=== PATIENT | male | born 1935 | race Caucasian/White ===

== ENCOUNTER 2020-10-04 07:11 | Outpatient (CLI) | payer MEDICARE, OTHER ==
[~2020-10-04] VITALS: Ht 180.3 cm; Wt 83.5 kg
[~2020-10-04 07:11] MED LIST: AMLO-186 PO; AMLO-187 PO; ASPI81TA59 PO; ATOR40TA59 PO; CLOP75TA PO; DOCU-109 PO; ISOS30TA68 PO; LISI-130 PO; METF500T16 PO; METO100T5 PO; VIT1CAPS12 PO
[2020-10-04] MEDS ORDERED: THROMBIN TOPICAL 5,000 UNIT VIAL. TP ONE (08:00)
[2020-10-04 08:01] VITALS: BP 165/64
[2020-10-04] MEDS ORDERED: LIDOCAINE WITH 8.4% SOD BICARB 3 ML DISP.SYRIN. ONE (08:17)
[2020-10-04] MEDS ORDERED: ZANTAC PO (08:38)
--- NOTE | 2020-10-04 09:25 | NUR ---
Right Pseudoaneurysm not present per Dr. Lopez and ultrasound confirmation. Patient returned to CV/OBS, IV discontinued without any problems, patient dressed and he and his were escorted to the outpatient parking lot to go home. All questions answered and no concerns noted.
--- NOTE | 2020-10-04 14:08 | RAD ---
Right groin arterial Doppler ultrasound study without comparison for history of pseudoaneurysm status post heart catheter. HISTORY: This dominant presents for treatment of 1.5 cm pseudoaneurysm identified approximately one w red devil prior on outside imaging. He indicates no pain in the groin, and states that his small ecchymosis has been improving. Technique and findings: Real-time grayscale and color Doppler evaluation of the arteries of the right groin is performed. There is moderate ossified atherosclerosis. No pseudoaneurysm is identified. No juxta arterial fluid collection is seen. Common femoral artery is patent. IMPRESSION: 1. Moderate atherosclerosis with no sonographic evidence of pseudoaneurysm or juxta arterial fluid co llection. This is in keeping with clinical history of resolved pain and improving ecchymosis. Consequ ently, treatment was deferred. Electronically signed by: Leroy Lopez MD (10/04/2020 2:05 PM) [id number]
== END 2020-10-04 09:22 | disposition home or self-care (01) ==
LOC: INTRAD 07:11
PROVIDERS: ATTEND Surgery Vascular Surgery
DX: I72.9 Aneurysm of unspecified site (principal); I70.90 Unspecified atherosclerosis; I11.0 Hypertensive heart disease with heart failure; I50.9 Heart failure, unspecified; E78.00 Pure hypercholesterolemia, unspecified; I25.10 Atherosclerotic heart disease of native coronary artery without angina pectoris; M19.90 Unspecified osteoarthritis, unspecified site; E11.9 Type 2 diabetes mellitus without complications; Z87.891 Personal history of nicotine dependence; Z79.82 Long term (current) use of aspirin; Z79.899 Other long term (current) drug therapy; Z98.890 Other specified postprocedural states; Z88.6 Allergy status to analgesic agent
CPT/HCPCS: 93926

== ENCOUNTER 2021-03-19 07:51 | Inpatient (IN) | payer MEDICARE, OTHER ==
[~2021-03-19] VITALS: Ht 177.8 cm; Wt 78.5 kg
[~2021-03-19 07:51] MED LIST changes: +ZANTAC PO
[2021-03-19 08:00] VITALS: BP 175/86
[2021-03-19] MEDS ORDERED: FUROSEMIDE 40 MG/4 ML VIAL. IVP ONE (08:15)
[2021-03-19] MEDS ORDERED: ICOS1CAP PO (08:18)
--- NOTE | 2021-03-19 08:35 | PDOC1 ---
History and Physical Date of Service: DOS: DATE: 03/19/21 TIME: 08:33 Chief Complaint: Chief Complain: Shortness of breath History of Present Illness: HPI: 85-year-old male with past medical history of stage I diastolic CHF with LVEF of 50 to 55% CABG 20 years ago, recent left heart cath in August, diabetes mellitus type 2, hypertension, dyslipidemia, gastric ulcer who comes in due to shortness of breath for the past 1 day. Patient states that he was at home and he was unable to go to sleep because when he lie down flat he would be short of breath. He endorses lower extremity swelling more than usual and shortness of breath during exertion. Recently had a heart cath in August and he was unsure of what was going on. Upon review of the records there was in-stent restenosis of a vein graft from his CABG but intervention for angioplasty was unsuccessful. Patient was continue with GDMT and recommended for follow-up with Dr. Mattson at [facility]. Patient also endorses some chest pressure on the left side of his chest that was similar to when he had his chest pain in the past before. Pain is not reproducible on palpation. Currently denies any fevers, abdominal pain, diarrhea, syncope, nausea vomiting, decrease in urine output. Patient is transferred to [facility] from [facility] on a BiPAP due to hypoxic respiratory failure. Past Medical/Surgical History: PMH/PSH: PAST MEDICAL HISTORY: His past medical history is significant for coronary artery disease, status post CABG about more than 20 years ago. He is known to have hypertension, type 2 diabetes, hyperlipidemia and has a bleeding gastric ulcer. At that time, he became anemic and developed chest pain and that is why he ended up with the coronary artery bypass graft surgery. PAST SURGICAL HISTORY: Significant for coronary artery bypass graft surgery, right carotid artery endarterectomy, bilateral cataract extraction, tonsillectomy, appendectomy, and right total knee arthroplasty. Allergies: Allergies: Coded Allergies: morphine (Verified Allergy, Intermediate, 09/19/20) Family History: Family History: Reviewed : Has one brother older and at age of 87. Father at age of 88 because of CVA and mother early at age of 50 because of end-stage renal disease. Social History: Social History: Quit smoking in 1990. Does not drink alcohol or use any drugs. Current Medications: Current Medications Current Medications Furosemide (Lasix) 40 mg 1X ONCE IVP ; Start 03/19/21 at 08:15; Stop 03/19/21 at 08:19; Status DC Amlodipine Besylate (Norvasc) 5 mg DAILY PO ; Start 03/19/21 at 09:00 Aspirin (Aspirin Chewable) 81 mg DAILY PO ; Start 03/19/21 at 09:00 Atorvastatin Calcium (Lipitor) 80 mg DAILY PO ; Start 03/19/21 at 09:00 Clopidogrel Bisulfate (Plavix) 75 mg DAILY PO ; Start 03/19/21 at 09:00 Docusate Sodium (Colace) 100 mg BID PO ; Start 03/19/21 at 09:00 Isosorbide Mononitrate (Imdur) 30 mg DAILY PO ; Start 03/19/21 at 09:00 Lisinopril (Prinivil) 40 mg DAILY PO ; Start 03/19/21 at 09:00; Status UNV Metformin HCl (Glucophage) 500 mg BIDWMEALS PO ; Start 03/19/21 at 17:00; Status UNV Metoprolol Succinate (Toprol Xl) 100 mg DAILY PO ; Start 03/19/21 at 09:00 Fish Oil (Fish Oil) 1,000 mg BID PO ; Start 03/19/21 at 09:00 Multivitamins/ Minerals (I-Aurelio) 1 tab DAILY PO ; Start 03/19/21 at 09:00 Famotidine (Pepcid) 20 mg BID PO ; Start 03/19/21 at 09:00 Active Scripts Active Clopidogrel (Clopidogrel Bisulfate) 75 Mg Tablet 1 Tab PO DAILY 30 Days Isosorbide Mononitrate Er (Isosorbide Mononitrate) 30 Mg Tab.er.24h 1 Tab PO DAILY 30 Days Amlodipine Besylate 5 Mg Tablet 5 Mg PO DAILY 30 Days Reported Vascepa (Icosapent Ethyl) 1 Gm Capsule 2 Cap PO BID 30 Days [Zantac] 150 Mg PO BID Preservision Areds Softgel (Vit A/Vit C/Vit E/Zinc/Copper) 1 Each Capsule 1 Cap PO BID 30 Days Toprol Xl (Metoprolol Succinate) 100 Mg Tab.er.24h 1 Tab PO DAILY 30 Days Metformin Hcl 500 Mg Tablet 500 Mg PO BIDWMEALS Lisinopril 40 Mg Tablet 1 Tab PO DAILY Colace (Docusate Sodium) 100 Mg Capsule 1 Cap PO BID 30 Days Atorvastatin Calcium 40 Mg Tablet 2 Tab PO DAILY Children's Aspirin (Aspirin) 81 Mg Tab.chew 1 Tab PO DAILY 30 Days ROS: Review of Systems Review of System REVIEW OF SYSTEMS: GENERAL: Denies weakness SKIN: No bruising, hair changes or rashes. EYES: No blurred, double or loss of vision. NOSE AND THROAT: No history of nosebleeds, hoarseness or sore throat. HEART: No history of palpitations, chest pain or shortness of breath on exertion. LUNGS: Denies cough, hemoptysis, wheezing or shortness of breath. GASTROINTESTINAL: Denies changes in appetite, nausea, vomiting, diarrhea or constipation. GENITOURINARY: No history of frequency, urgency, hesitancy or nocturia. NEUROLOGIC: Denies history of numbness, tingling, or tremor. PSYCHIATRIC: No history of panic, anxiety or depression. ENDOCRINE: No history of heat or cold intolerance, polyuria or polydipsia. EXTREMITIES: Denies joint pain, pain on walking or stiffness. Physical Exam: Vital Signs: Vital Signs Date Time Temp Pulse Resp B/P (MAP) Pulse Ox O2 Delivery O2 Flow Rate FiO2 03/19/21 08:10 96 BiPAP/CPAP 03/19/21 08:00 97.7 88 26 175/86 (115) 4.0 97.7 Physcial Exam: General: Well developed, well nourished, no acute distress, well appearing HEENT: Pupils equally round and reactive to light, EOMI, no discharge, normal conjunctiva Neck: Supple, no nuchal rigidity, no JVD, trachea midline, no tenderness Cardiac: RRR, no murmurs, no gallops, no rubs Chest/Lungs: Fine crackles bilaterally in the bases Abdomen: soft, non-distended, no guarding, no peritoneal signs, non-tender Back: No tenderness Extremities: +1 pedal edema, pulses intact, non-tender,capillary refill <3 sec bilateral upper and lower extremities, Neuro: Alert and oriented x 4, no focal deficits, normal speech Labs: Labs: Outside images reviewed showing elevated troponins and elevated BNP. Images: Images PROCEDURE: ECHOCARDIOGRAM 2D SPEC/COLOR <Conclusion> The left ventricular systolic function is normal. The ejection fraction is 50-55%. Transmitral Doppler flow pattern is Grade I-abnormal relaxation pattern. Mild mitral regurgitation. There is no evidence of significant pericardial effusion Left heart cath in August 2020: Conclusion 1. Mildly elevated left-sided filling pressures 2. Severe three-vessel coronary artery disease 3. 4/4 bypass grafts patent with severe in-stent restenosis of a sequential vein graft to the obtuse marginal diagonal vessels. 4. Unsuccessful balloon angioplasty of the saphenous vein graft in-stent restenosis. Assessment/Plan Assessment/Plan Acute hypoxic respiratory failure requiring BiPAP Acute CHF exacerbation Acute chest pressure concerning for non-STEMI History of CABG History of diabetes mellitus type 2 History of hypertension History of gastric ulcer Admit to hospitalist service for further management Cardiology consult Strict I's and O's Lasix IV as needed Monitor urine output Resume home cardioprotective medication Heparin for DVT prophylaxis Pepcid GI prophylaxis ADA diet CODE STATUS full Discussed with RN and SW Disposition inpatient management as above DPOA: , Sepideh Mccullough In addition to my E/M visit, advance care planning done with A total time of 20 minutes was spent from 9:00 to 920 face to face in discussion regarding the patient's goals of care, CODE STATUS. A total of 45 minutes of critical care time was spent in reviewing chart, labs, and images. Discussed with RN and SW. Justifications for Admission Other Justification TARAH GIFFORD MD Mar 19, 2021 08:35
[2021-03-19 11:00] VITALS: BP 129/73
[2021-03-19] MEDS: MULTIVITAMIN I-VITE TABLET. PO SCH (11:09)
[2021-03-19] MEDS: ASPIRIN CHEWABLE 81 MG TABLET. PO SCH (11:10)
[2021-03-19] MEDS: ATORVASTATIN CALCIUM 40 MG TABLET. PO SCH (11:10)
[2021-03-19] MEDS: DOCUSATE SODIUM 100 MG CAPSULE. PO SCH ×2 (11:11→20:54)
[2021-03-19] MEDS: FAMOTIDINE 20 MG TABLET. PO SCH ×2 (11:11→20:53)
[2021-03-19] MEDS: ISOSORBIDE MONONITRATE ER 30 MG TAB.ER.24H PO SCH (11:11)
[2021-03-19] MEDS: CLOPIDOGREL BISULFATE 75 MG TABLET PO SCH (11:11)
[2021-03-19] MEDS: OMEGA-3 FATTY ACIDS/FISH OIL 1,000 MG CAPSULE. PO SCH ×2 (11:11→20:54)
[2021-03-19] MEDS: metFORMIN 500 MG TABLET PO SCH ×2 (11:11→17:30)
[2021-03-19] MEDS: LISINOPRIL 20 MG TABLET PO SCH (11:12)
[2021-03-19] MEDS: METOPROLOL SUCC 24HR ER 100 MG TAB.ER.24H. PO SCH (11:12)
[2021-03-19] MEDS ORDERED: ACETAMINOPHEN 325 MG TABLET. PO PRN (11:45)
[2021-03-19] MEDS ORDERED: SENNOSIDES 8.6 MG TABLET PO PRN (11:45)
[2021-03-19] MEDS ORDERED: DEXTROSE 50% 25 GM / 50ML DISP.SYRIN. IV PRN (11:45)
[2021-03-19] MEDS ORDERED: PROCHLORPERAZINE 10 MG/2 ML VIAL. IV PRN (11:45)
[2021-03-19] MEDS ORDERED: ONDANSETRON PF 4 MG/2 ML VIAL. IVP PRN (11:45)
[2021-03-19] MEDS ORDERED: LORazepam 0.5 MG TABLET PO PRN (11:45)
[2021-03-19] MEDS ORDERED: DOCUSATE SODIUM 100 MG CAPSULE. PO PRN (11:45)
[2021-03-19] MEDS: INSULIN LISPRO 300 UNITS/3 ML VIAL. SQ SCH ×2 (12:00→17:00)
[2021-03-19] MEDS ORDERED: ENOXAPARIN 40 MG/0.4 ML SYRINGE. SQ SCH (12:00)
--- NOTE | 2021-03-19 13:11 | CONS ---
DATE OF CONSULTATION: 03/19/2021 DATE OF CONSULTATION: 03/19/2021 REASON FOR CONSULTATION: Heart failure. CONSULTING PHYSICIAN: Dr. He. HISTORY OF PRESENT ILLNESS: Mr. Mccullough is an 85-year-old male well known to our service with past medical history as noted below, who [facility] with worsening dyspnea. He required initiation of noninvasive ventilation and at this time, an EKG was suggestive of ischemia and therefore STEMI was called, but upon further review, it was felt that it was not a ST elevation WA and he was treated appropriately with medical therapy and he was then transferred to [facility]. Upon arrival to [facility], the patient feels much better and is resting comfortably in bed on 2 liters of nasal cannula. He reports that he began to have some shortness of breath over the last several days and ultimately presented to the hospital as noted. He denies any anginal symptoms. Of note, he was seen recently by his primary survey chief about 3-4 weeks ago and he was appearing to be in a euvolemic state without any significant complaints. PAST MEDICAL HISTORY: 1. Coronary artery disease status post bypass with 4 vessels. 2. Hypertension. 3. Dyslipidemia. 4. Chronic diastolic heart failure. 5. Type 2 diabetes. SOCIAL HISTORY: No alcohol, tobacco or illicit drug use. ALLERGIES: MORPHINE. FAMILY HISTORY: Noncontributory. REVIEW OF SYSTEMS: Negative for 10 out of 14 systems reviewed, unless otherwise mentioned above in HPI.. PHYSICAL EXAMINATION: VITAL SIGNS: Afebrile, 73, 129/73, 95% on 2 liters nasal cannula. GENERAL: He appears to be alert and oriented, in no acute distress. HEAD AND NECK: Grossly unremarkable. NECK: Veins are flat. CARDIAC: Regular rate and rhythm without any murmurs, rubs or gallops. LUNGS: Notable for decreased breath sounds at the bases. ABDOMEN: Soft, nontender, nondistended. EXTREMITIES: Without any clubbing, cyanosis, but did demonstrate 1+ pitting edema. Pulses are diminished at 1+. NEUROLOGIC: No focal deficits. MUSCULOSKELETAL: No trauma. SKIN: No rashes. PSYCHIATRIC: Normal mood and affect. DIAGNOSTIC STUDIES: Initial EKG demonstrates sinus rhythm with a left anterior fascicular block, left ventricular hypertrophy, and intraventricular conduction delay. No acute ischemic changes are noted. Initial troponin is trivially elevated. BNP is moderately elevated. Chest x-ray consistent with pulmonary edema. Echocardiogram from August of 2020 demonstrates ejection fraction of 50-55%. Cardiac catheterization in August 2020 demonstrates 3 out of 4 vessels patent with in-stent restenosis of the saphenous vein graft to the diagonal obtuse marginal. Balloon angioplasty was unsuccessful and at that time, further intervention was deferred due to small caliber vessels. IMPRESSION: 1. Acute on chronic diastolic heart failure, etiology of the worsening heart failure is unclear. It may just be underlying ischemic heart disease. Another possibility is MSK shoulder pain leading to HTN and subsequent dyspnea. 2. Hypertension. 3. Dyslipidemia. 4. Type 2 diabetes. RECOMMENDATIONS: At this present time, we will continue the patient's lisinopril, Imdur, metoprolol, Plavix, and atorvastatin as well as aspirin. Continue home amlodipine. Agree with diuresis. Continue serial enzymes and we will monitor closely. I suspect he was volume overloaded slowly and just had progressive diastolic heart failure and after diuresis, he will return to his baseline, at which point he may then be discharged with followup with his primary survey chief, Dr. Mattson at [facility]. Consult Dr. Fuller for possible steroid injection to shoulder. Thank you for this consultation. We will follow along closely. [place]ALL[place]/CHRISTOPH MARTINEZ: Ben TID: [id number] [facility]
[2021-03-19 15:00] VITALS: BP 121/65
[2021-03-19 20:00] VITALS: BP 126/57
[2021-03-19] MEDS: ZOLPIDEM 5 MG TABLET. PO PRN (22:11)
[2021-03-19 23:06] VITALS: BP 121/61
[2021-03-20] VITALS (7 sets, daily range): BP systolic 118–154; BP diastolic 65–75
[2021-03-20 05:05] LABS: BASO % 0 % (0-3); EOS # 0.1 x10^3/uL (0.0-0.7); EOS % 1 % (0-3); HEMATOCRIT 33.8 % (39.0-53.0); HEMOGLOBIN 11.4 g/dL (13.0-17.5); LYMPH # 0.8 x10^3/uL (1.0-4.8); LYMPH % 9 % (24-48); MEAN CORPUSCULAR HEMOGLOBIN 31 pg (25-35); MEAN CORPUSCULAR HGB CONC 34 g/dL (31-37); MEAN CORPUSCULAR VOLUME 91 fL (79-100); MONO # 0.7 x10^3/uL (0.0-1.1); MONO % 8 % (0-9); NEUT # 7.1 x10^3/uL (1.8-7.7); NEUT % 82 % (31-73); PLATELET COUNT 151 x10^3/uL (140-400); RED BLOOD COUNT 3.73 x10^6/uL (4.30-5.70); RED CELL DISTRIBUTION WIDTH 15.2 % (11.5-14.5); WHITE BLOOD COUNT 8.7 x10^3/uL (4.0-11.0)
[2021-03-20 05:31] LABS: CALCIUM 8.1 mg/dL (8.5-10.1); CREATININE 0.9 mg/dL (0.7-1.3); MAGNESIUM 1.7 mg/dL (1.8-2.4); PHOSPHORUS 4.2 mg/dL (2.6-4.7); POTASSIUM 4.1 mmol/L (3.5-5.1)
[2021-03-20 05:38] LABS: % LYMPHS 6 % (24-48); % MONOS 5 % (0-10); % SEGS 89 % (35-66); PLT ESTIMATE ADEQUATE (ADEQUATE); TOXIC GRANULATION SLIGHT; TOXIC VACUOLATION SLIGHT
--- NOTE | 2021-03-20 06:37 | PDOC ---
[employer] PROGRESS NOTE Date of Service DOS: DATE: 03/20/21 TIME: 06:21 Chief Complaint Chief Complaint Acute hypoxic respiratory failure requiring BiPAP Acute on chronic diastolic CHF exacerbation Acute chest pressure concerning for non-STEMI History of CABG History of diabetes mellitus type 2 History of hypertension History of gastric ulcer Admit to hospitalist service for further management Cardiology consult Strict I's and O's Lasix IV as needed Monitor urine output Resume home cardioprotective medication Heparin for DVT prophylaxis Pepcid GI prophylaxis ADA diet CODE STATUS full Discussed with RN and SW Disposition inpatient management as above DPOA: , Sepideh Mccullough History of Present Illness History of Present Illness 85-year-old male with past medical history of stage I diastolic CHF with LVEF of 50 to 55% CABG 20 years ago, recent left heart cath in August, diabetes mellitus type 2, hypertension, dyslipidemia, gastric ulcer who comes in due to shortness of breath for the past 1 day. Patient states that he was at home and he was unable to go to sleep because when he lie down flat he would be short of breath. He endorses lower extremity swelling more than usual and shortness of breath during exertion. Recently had a heart cath in August and he was unsure of what was going on. Upon review of the records there was in-stent restenosis of a vein graft from his CABG but intervention for angioplasty was unsuccessful. Patient was continue with GDMT and recommended for follow-up with Dr. Mattson at [facility]. Patient also endorses some chest pressure on the left side of his chest that was similar to when he had his chest pain in the past before. Pain is not reproducible on palpation. Currently denies any fevers, abdominal pain, diarrhea, syncope, nausea vomiting, decrease in urine output. Patient is transferred to [facility] from [facility] on a BiPAP due to hypoxic respiratory failure. 03/20: Patient is afebrile, currently breathing on room air. He denies any chest pain or sensation of shortness of breath. -1750 mL fluid off overnight; continue diuresis with daily Lasix. He states he has been noticing some swelling in his legs for some time, but Dr. Mattson has been treating with compression stockings without complete relief. I believe he is able to d ischarge from the ICU at this time. Repeat troponins 3.335, 3.030; cardiology following. Echocardiogram from 09/20/2020 showed normal left ventricular systolic function, grade 1 diastolic dysfunction, EF 50-55%. Once he is stable and breathing on room air he may discharge to follow-up with his primary comb winder, Dr. Mattson at [facility]. Vitals/I&O Vitals/I&O: Vital Signs Date Time Temp Pulse Resp B/P (MAP) Pulse Ox O2 Delivery O2 Flow Rate FiO2 03/20/21 03:00 98.4 71 14 118/70 (86) 93 Nasal Cannula 1.0 98.4 I & O 03/19/21 03/19/21 03/20/21 15:00 23:00 07:00 Intake Total 800 ml Output Total 1650 ml 600 ml 300 ml Balance -1650 ml 200 ml -300 ml Physical Exam General: Alert, Cooperative, No acute distress Heart: Regular rate Lungs: Crackles Abdomen: Soft Extremities: No clubbing, No cyanosis Skin: No rashes, No breakdown Labs Labs: Laboratory Tests Test 03/19/21 12:20 03/19/21 14:50 03/19/21 15:30 03/19/21 17:19 Troponin I Quantitative 2.467 ng/mL (0.000-0.055) 3.335 ng/mL (0.000-0.055) SARS-CoV-2 Antigen (Rapid) Negative (NEGATIVE) Glucose (Fingerstick) 82 mg/dL (70-99) Test 03/19/21 22:07 03/20/21 04:45 Troponin I Quantitative 3.030 ng/mL (0.000-0.055) White Blood Count 8.7 x10^3/uL (4.0-11.0) Red Blood Count 3.73 x10^6/uL (4.30-5.70) Hemoglobin 11.4 g/dL (13.0-17.5) Hematocrit 33.8 % (39.0-53.0) Mean Corpuscular Volume 91 fL (79-100) Mean Corpuscular Hemoglobin 31 pg (25-35) Mean Corpuscular Hemoglobin Concent 34 g/dL (31-37) Red Cell Distribution Width 15.2 % (11.5-14.5) Platelet Count 151 x10^3/uL (140-400) Neutrophils (%) (Auto) 82 % (31-73) Lymphocytes (%) (Auto) 9 % (24-48) Monocytes (%) (Auto) 8 % (0-9) Eosinophils (%) (Auto) 1 % (0-3) Basophils (%) (Auto) 0 % (0-3) Neutrophils # (Auto) 7.1 x10^3/uL (1.8-7.7) Lymphocytes # (Auto) 0.8 x10^3/uL (1.0-4.8) Monocytes # (Auto) 0.7 x10^3/uL (0.0-1.1) Eosinophils # (Auto) 0.1 x10^3/uL (0.0-0.7) Basophils # (Auto) 0.0 x10^3/uL (0.0-0.2) Segmented Neutrophils % 89 % (35-66) Lymphocytes % 6 % (24-48) Monocytes % 5 % (0-10) Toxic Granulation Slight Toxic Vacuolation Slight Platelet Estimate Adequate (ADEQUATE) Sodium Level 136 mmol/L (136-145) Potassium Level 4.1 mmol/L (3.5-5.1) Chloride Level 101 mmol/L (98-107) Carbon Dioxide Level 28 mmol/L (21-32) Anion Gap 7 (6-14) Blood Urea Nitrogen 18 mg/dL (8-26) Creatinine 0.9 mg/dL (0.7-1.3) Estimated GFR (Cockcroft-Gault) 80.0 Glucose Level 89 mg/dL (70-99) Calcium Level 8.1 mg/dL (8.5-10.1) Phosphorus Level 4.2 mg/dL (2.6-4.7) Magnesium Level 1.7 mg/dL (1.8-2.4) Comment Review of Relevant I have reviewed the following items janay (where applicable) has been applied. Medications: Current Medications Medications (Trade) Dose Ordered Sig/Nery Route PRN Reason Start Time Stop Time Status Last Admin Dose Admin Furosemide (Lasix) 40 mg 1X ONCE IVP 03/19/21 08:15 03/19/21 08:19 DC 03/19/21 08:52 Amlodipine Besylate (Norvasc) 5 mg DAILY PO 03/19/21 09:00 03/19/21 11:12 Aspirin (Aspirin Chewable) 81 mg DAILY PO 03/19/21 09:00 03/19/21 11:10 Atorvastatin Calcium (Lipitor) 80 mg DAILY PO 03/19/21 09:00 03/19/21 11:10 Clopidogrel Bisulfate (Plavix) 75 mg DAILY PO 03/19/21 09:00 03/19/21 11:11 Docusate Sodium (Colace) 100 mg BID PO 03/19/21 09:00 03/19/21 20:54 Isosorbide Mononitrate (Imdur) 30 mg DAILY PO 03/19/21 09:00 03/19/21 11:11 Lisinopril (Prinivil) 40 mg DAILY PO 03/19/21 09:00 03/19/21 11:12 Metformin HCl (Glucophage) 500 mg BIDWMEALS PO 03/19/21 09:00 03/19/21 17:30 Metoprolol Succinate (Toprol Xl) 100 mg DAILY PO 03/19/21 09:00 03/19/21 11:12 Fish Oil (Fish Oil) 1,000 mg BID PO 03/19/21 09:00 03/19/21 20:54 Multivitamins/ Minerals (I-Aurelio) 1 tab DAILY PO 03/19/21 09:00 03/19/21 11:09 Famotidine (Pepcid) 20 mg BID PO 03/19/21 09:00 03/19/21 20:53 Zolpidem Tartrate (Ambien) 2.5 mg PRN QHS PRN PO INSOMNIA 03/19/21 11:45 03/19/21 22:11 Enoxaparin Sodium (Lovenox 80mg Syringe) 80 mg 1X ONCE SQ 03/19/21 13:00 03/19/21 13:01 DC 03/19/21 13:00 Justifications for Admission Other Justification Hypoxic respiratory failure DAGOBERTO SHIELDS MD Mar 20, 2021 06:37
[2021-03-20] MEDS: INSULIN LISPRO 300 UNITS/3 ML VIAL. SQ SCH ×3 (08:00→17:00)
[2021-03-20] MEDS: ATORVASTATIN CALCIUM 40 MG TABLET. PO SCH (08:05)
[2021-03-20] MEDS: ASPIRIN CHEWABLE 81 MG TABLET. PO SCH (08:10)
[2021-03-20] MEDS: OMEGA-3 FATTY ACIDS/FISH OIL 1,000 MG CAPSULE. PO SCH ×2 (08:10→21:37)
[2021-03-20] MEDS: metFORMIN 500 MG TABLET PO SCH (08:10)
[2021-03-20] MEDS: MULTIVITAMIN I-VITE TABLET. PO SCH (08:10)
[2021-03-20] MEDS: LISINOPRIL 20 MG TABLET PO SCH (08:10)
[2021-03-20] MEDS: CLOPIDOGREL BISULFATE 75 MG TABLET PO SCH (08:10)
[2021-03-20] MEDS: METOPROLOL SUCC 24HR ER 100 MG TAB.ER.24H. PO SCH (08:11)
[2021-03-20] MEDS: FUROSEMIDE 20 MG TABLET PO SCH (08:11)
[2021-03-20] MEDS: FAMOTIDINE 20 MG TABLET. PO SCH ×2 (08:11→21:36)
[2021-03-20] MEDS: DOCUSATE SODIUM 100 MG CAPSULE. PO SCH ×2 (08:11→21:00)
[2021-03-20] MEDS: ISOSORBIDE MONONITRATE ER 30 MG TAB.ER.24H PO SCH (08:11)
[2021-03-20] MEDS ORDERED: PERFLUTREN PROTEIN-A MICROSPHR 0.22 MG/ML 3 ML VIAL. IV ONE (10:15)
--- NOTE | 2021-03-20 11:06 | NUR ---
SS following for discharge planning. SS reviewed pt chart and discussed with pt RN. Pt is from home with spouse and is currently on room air. COVID19 negative. Cardiology consulted. ECHO today. SS will continue to follow for discharge planning.
--- NOTE | 2021-03-20 11:25 | PDOC ---
CARDIO Progress Notes Date and Time Date of Service 03/20/21 Time of Evaluation 1015 Subjective Subjective: Other (c/o left shoulder pain. breathing improved) Vitals Vitals Vital Signs Date Time Temp Pulse Resp B/P (MAP) Pulse Ox O2 Delivery O2 Flow Rate FiO2 03/20/21 08:11 67 153/78 03/20/21 08:00 Room Air 03/20/21 07:00 98.4 14 92 1.0 98.4 Weight Weight [ ] Input and Output Intake and Output Intake and Output 03/20/21 07:00 Intake Total 800 ml Output Total 2550 ml Balance -1750 ml Intake Oral 800 ml Output Urine Total 2550 ml Laboratory Labs Laboratory Tests Test 03/19/21 12:20 03/19/21 14:50 03/19/21 15:30 03/19/21 17:19 Troponin I Quantitative 2.467 ng/mL (0.000-0.055) 3.335 ng/mL (0.000-0.055) SARS-CoV-2 RNA (HARLEEN) Negative (Negative) SARS-CoV-2 Antigen (Rapid) Negative (NEGATIVE) Glucose (Fingerstick) 82 mg/dL (70-99) Test 03/19/21 22:07 03/20/21 04:45 Troponin I Quantitative 3.030 ng/mL (0.000-0.055) White Blood Count 8.7 x10^3/uL (4.0-11.0) Red Blood Count 3.73 x10^6/uL (4.30-5.70) Hemoglobin 11.4 g/dL (13.0-17.5) Hematocrit 33.8 % (39.0-53.0) Mean Corpuscular Volume 91 fL (79-100) Mean Corpuscular Hemoglobin 31 pg (25-35) Mean Corpuscular Hemoglobin Concent 34 g/dL (31-37) Red Cell Distribution Width 15.2 % (11.5-14.5) Platelet Count 151 x10^3/uL (140-400) Neutrophils (%) (Auto) 82 % (31-73) Lymphocytes (%) (Auto) 9 % (24-48) Monocytes (%) (Auto) 8 % (0-9) Eosinophils (%) (Auto) 1 % (0-3) Basophils (%) (Auto) 0 % (0-3) Neutrophils # (Auto) 7.1 x10^3/uL (1.8-7.7) Lymphocytes # (Auto) 0.8 x10^3/uL (1.0-4.8) Monocytes # (Auto) 0.7 x10^3/uL (0.0-1.1) Eosinophils # (Auto) 0.1 x10^3/uL (0.0-0.7) Basophils # (Auto) 0.0 x10^3/uL (0.0-0.2) Segmented Neutrophils % 89 % (35-66) Lymphocytes % 6 % (24-48) Monocytes % 5 % (0-10) Toxic Granulation Slight Toxic Vacuolation Slight Platelet Estimate Adequate (ADEQUATE) Sodium Level 136 mmol/L (136-145) Potassium Level 4.1 mmol/L (3.5-5.1) Chloride Level 101 mmol/L (98-107) Carbon Dioxide Level 28 mmol/L (21-32) Anion Gap 7 (6-14) Blood Urea Nitrogen 18 mg/dL (8-26) Creatinine 0.9 mg/dL (0.7-1.3) Estimated GFR (Cockcroft-Gault) 80.0 Glucose Level 89 mg/dL (70-99) Calcium Level 8.1 mg/dL (8.5-10.1) Phosphorus Level 4.2 mg/dL (2.6-4.7) Magnesium Level 1.7 mg/dL (1.8-2.4) Physical Exam HEENT: Neck Supple W Full Motion Chest: Symmetric LUNGS: Other (diminished bases) Heart: RRR Abdomen: Soft N/T Extremities: Other (trace bilateral LE edema) Neurology: alert, oriented, follow commands Assessment Assessment 1. Acute on chronic diastolic CHF; echo 09/14 with LVEF 50-55%. improved s/p diuresis 2. NSTEMI; trop peak 3.3. LHC 09/14 with 4/4 bypass grafts patent with severe in-stent restenosis of a sequential vein graft to the obtuse marginal diagonal vessels. angioplasty unsuccessful . s/p Lovenox. 3. CAD; remote CABG. CP free, although does c/o left shoulder pain 4. Hypertension; now controlled 5. Hyperlipidemia; statin 6. Diabetes, II Recommendations Limited echo to assess LV systolic function Secondary prevention; ASA/Plavix, high-dose statin, Imdur, BB therapy NPO Will consider LHC if significant changes noted on echo. Otherwise, medical management. Supportive care Justicifation of Admission Dx: Justifications for Admission: Justification of Admission Dx: Yes YENIFER IVERSON APRN Mar 20, 2021 11:25
--- NOTE | 2021-03-20 11:32 | CARD ---
MR#: [id number] Date of Study: 03/20/2021 Ordering Physician: YENIFER IVERSON, Referring Physician: YENIFER IVERSON, Tech: Nicole Zimmer [facility] APPROVED REPORT EXAM: Two-dimensional and M-mode echocardiogram with Doppler and color Doppler. Other Information Quality : AverageHR: 69bpm Rhythm : NSR INDICATION Non STEMI RISK FACTORS Hypertension Hyperlipidemia 2D DIMENSIONS Left Atrium(2D)5.4 (1.6-4.0cm)IVSd1.3 (0.7-1.1cm) Aortic Root(2D)3.6 (2.0-3.7cm)LVDd5.0 (3.9-5.9cm) LVOT Diameter2.4 (1.8-2.4cm)PWd1.2 (0.7-1.1cm) LVDs3.6 (2.5-4.0cm)FS (%) 26.9 % SV60.7 mlLVEF(%)52.2 (>50%) Tricuspid Valve TR P. [id number] Peak Gr.20mmHg LEFT VENTRICLE The left ventricle is normal size. There is mild concentric left ventricular hypertrophy. The systoli c function is moderately impaired. EF 35-40%. There is moderate global hypokinesis. Septal motion sug gestive of conductiond defect. RIGHT VENTRICLE The right ventricle is normal size. There is normal right ventricular wall thickness. The right ventr icular systolic function is normal. AORTIC VALVE The aortic valve is normal in structure and function. There is no significant aortic valvular stenosi s. MITRAL VALVE The mitral valve is normal in structure and function. There is no evidence of mitral valve prolapse. There is no mitral valve stenosis. TRICUSPID VALVE The tricuspid valve is normal in structure and function. Doppler and Color Flow revealed trace tricus pid regurgitation. Estimated PAP 25 mmHg. There is no tricuspid valve stenosis. GREAT VESSELS The aortic root is normal in size. The ascending aorta is normal in size. The IVC is dilated and rosalind apses <50% with inspiration. PERICARDIAL EFFUSION There is no evidence of significant pericardial effusion. Critical Notification Critical Value: No <Conclusion> The systolic function is moderately impaired. EF 35-40%. There is moderate global hypokinesis. Septal motion suggestive of conductiond defect. Signed by : Leighton Skelton, Electronically Approved : 03/20/2021 11:31:43
[2021-03-20] MEDS ORDERED: IODIXANOL 320 MG/ML 100 ML VIAL. ONE (14:21)
[2021-03-20] MEDS ORDERED: LIDOCAINE 1% PF 2 ML VIAL. ONE (14:21)
[2021-03-20] MEDS ORDERED: HEPARIN for ARTERIAL LINE 1,500 ML ONE (14:22)
[2021-03-20] MEDS ORDERED: LIDOCAINE 1% Multi-Dose 20 ML VIAL. ONE (14:38)
[2021-03-20] MEDS ORDERED: fentaNYL PF VIAL 100 MCG/2 ML VIAL ONE (14:41)
[2021-03-20] MEDS ORDERED: MIDAZOLAM HCL/PF 2 MG/2 ML VIAL. ONE (14:41)
[2021-03-20 14:59] LABS: CHOLESTEROL/HDL RATIO 2.4
[2021-03-20] MEDS ORDERED: LIDOCAINE 1% Multi-Dose 20 ML VIAL. INJ ONE (15:15)
[2021-03-20] MEDS ORDERED: IODIXANOL 320 MG/ML 100 ML VIAL. IART ONE (15:15)
[2021-03-20] MEDS ORDERED: CLOPIDOGREL BISULFATE 75 MG TABLET PO ONE (15:15)
[2021-03-20] MEDS ORDERED: MIDAZOLAM HCL/PF 2 MG/2 ML VIAL. IV ONE (15:15)
--- NOTE | 2021-03-20 16:25 | CARD ---
MR#: [id number] Date of Study: 03/20/2021 Ordering Physician: GRACE CHOWDHURY, Referring Physician: GRACE CHOWDHURY, Tech: RT Elver(R)() APPROVED REPORT Technologist: RT Elver(R)() Nurse: Whitney Pitts RN Procedure(s) performed: FL TIME: 9.1 MINS DOSE: 86 GYCM2 CONTRAST: 81 ML MODERATE SEDATION: 56 MINS LHC, Coronary angiography, Bypass angiography CS Clinical Frailty Scale [facility] Clinical Frailty Scale: Moderately Frail Heart Failure Heart Failure: Yes If Yes, Newly Diagnosed: Yes If Yes, HF Type: Diastolic Systolic If Yes, NYHA Class: Class III CASE TECHNIQUE IV conscious sedation was used throughout procedure with appropriate monitoring and was performed in the presence of a registered nurse who was an independent trained observer other than the physician p erforming the procedure. During this case, Fluoroscopy and low osmolar contrast were used for imaging . Specimen(s) Removed: N/A Estimated Blood loss: 25 cc's. PROCEDURE NARRATIVE Clinical information: 85-year-old male presented to the hospital in the setting of flash pulmonary edema and a troponin of 3.3 and therefore he was taken to the catheterization laboratory for further evaluation. Procedure details: The right groin was prepped and draped in usual sterile fashion. Under 1% lidocaine local anesthesia a 6 Amharic sheath was placed in the right common femoral artery via the modified Seldinger technique . Due to scar tissue and significant calcification there was difficulty traversing a J-tipped guidew sindi and therefore a Glidewire was used and serial dilation with a 4 and 5 Amharic dilators ultimately helped with placement of a 6 Amharic sheath over a J-tipped guidewire. Next diagnostic angiography wa s performed with a 6 Amharic JR4, LENA and JL4 catheters. A pigtail catheter was used to obtain a left ventricular end-diastolic pressure and a pullback was performed. At case completion the right groin sheath was removed and hemostasis was achieved via manual compression. No acute complications noted Findings: Aorta 120/80 LVEDP 17 mmHg Left ventriculogram deferred due to known moderate LV systolic dysfunction with ejection fraction of 35%. Coronary angiography: Left main is heavily calcified and has severe diffuse disease of up to 80% LAD is heavily calcified with a proximal 100% occlusion. The mid and distal vessel seen to fill via patent LENA graft D1 is heavily calcified and small in caliber and is proximally occluded. The distal vessel seen to f ill via a saphenous vein patent jump graft Left circumflex is proximally occluded OM1 is a moderate caliber vessel with a proximal occlusion. The distal vessel seen to fill via the s aphenous vein jump graft involving the D1. There is a bifurcation stent at the level of the saphenou s vein graft touchdown at the first diagonal with 80% in-stent restenosis in both limbs. RCA is a moderate to large caliber dominant vessel with a proximal 100% occlusion. Bypass angiography: SPANGLER to the LAD is widely patent without anastomotic stenosis SVG to RCA is widely patent without anastomotic stenosis Saphenous vein jump graft involving the D1 and OM1 is notable for a bifurcation stent in-stent resten osis of 80%. Conclusion 1. Mild acute on chronic diastolic heart failure with an LVEDP of 17 mmHg 2. Severe [place] three-vessel coronary artery disease 3. 4 of 4 bypass grafts patent 5. Severe in-stent restenosis involving the bifurcation stents of the saphenous vein jump graft Recommendations 1. Continue aspirin and Plavix therapy for non-STEMI 2. Continue goal-directed medical therapy for ischemic cardiomyopathy 3. Consider referral for laser atherectomy versus drug-eluting balloon angioplasty at [facility] given that the patient had admission for flash pulmonary edema. Signed by : Grace Chowdhury, Electronically Approved : 03/20/2021 16:25:28
[2021-03-20] MEDS ORDERED: MAGNESIUM SULFATE 2GM 50 ML IV ONE (18:00)
[2021-03-20] MEDS: ZOLPIDEM 5 MG TABLET. PO PRN (21:36)
[2021-03-21 04:11] VITALS: BP_SYST 117; BP_SYST 160; BP_DIAS 55; BP_DIAS 72
[2021-03-21 04:50] LABS: BASO % 1 % (0-3); EOS # 0.1 x10^3/uL (0.0-0.7); EOS % 1 % (0-3); HEMATOCRIT 35.6 % (39.0-53.0); HEMOGLOBIN 11.9 g/dL (13.0-17.5); LYMPH # 0.6 x10^3/uL (1.0-4.8); LYMPH % 10 % (24-48); MEAN CORPUSCULAR HEMOGLOBIN 30 pg (25-35); MEAN CORPUSCULAR HGB CONC 33 g/dL (31-37); MEAN CORPUSCULAR VOLUME 89 fL (79-100); MONO # 0.5 x10^3/uL (0.0-1.1); MONO % 9 % (0-9); NEUT # 4.9 x10^3/uL (1.8-7.7); NEUT % 80 % (31-73); PLATELET COUNT 161 x10^3/uL (140-400); RED CELL DISTRIBUTION WIDTH 14.7 % (11.5-14.5); WHITE BLOOD COUNT 6.2 x10^3/uL (4.0-11.0)
[2021-03-21 05:31] LABS: CALCIUM 8.3 mg/dL (8.5-10.1); CREATININE 0.7 mg/dL (0.7-1.3); GFR 106.9; POTASSIUM 3.8 mmol/L (3.5-5.1)
[2021-03-21] MEDS: INSULIN LISPRO 300 UNITS/3 ML VIAL. SQ SCH ×2 (07:39→12:00)
--- NOTE | 2021-03-21 07:49 | PDOC ---
[employer] PROGRESS NOTE Date of Service DOS: DATE: 03/21/21 TIME: 07:30 Chief Complaint Chief Complaint Acute hypoxic respiratory failure requiring BiPAP Acute on chronic diastolic CHF exacerbation Acute chest pressure concerning for non-STEMI History of CABG History of diabetes mellitus type 2 History of hypertension History of gastric ulcer Admit to hospitalist service for further management Cardiology consult Strict I's and O's Lasix IV as needed Monitor urine output Resume home cardioprotective medication Heparin for DVT prophylaxis Pepcid GI prophylaxis ADA diet CODE STATUS full Discussed with RN and SW Disposition inpatient management as above DPOA: , Sepideh Mccullough History of Present Illness History of Present Illness 85-year-old male with past medical history of stage I diastolic CHF with LVEF of 50 to 55% CABG 20 years ago, recent left heart cath in August, diabetes mellitus type 2, hypertension, dyslipidemia, gastric ulcer who comes in due to shortness of breath for the past 1 day. Patient states that he was at home and he was unable to go to sleep because when he lie down flat he would be short of breath. He endorses lower extremity swelling more than usual and shortness of breath during exertion. Recently had a heart cath in August and he was unsure of what was going on. Upon review of the records there was in-stent restenosis of a vein graft from his CABG but intervention for angioplasty was unsuccessful. Patient was continue with GDMT and recommended for follow-up with Dr. Mattson at [facility]. Patient also endorses some chest pressure on the left side of his chest that was similar to when he had his chest pain in the past before. Pain is not reproducible on palpation. Currently denies any fevers, abdominal pain, diarrhea, syncope, nausea vomiting, decrease in urine output. Patient is transferred to [facility] from [facility] on a BiPAP due to hypoxic respiratory failure. 03/20: Patient is afebrile, currently breathing on room air. He denies any chest pain or sensation of shortness of breath. -1750 mL fluid off overnight; continue diuresis with daily Lasix. He states he has been noticing some swelling in his legs for some time, but Dr. Mattson has been treating with compression stockings without complete relief. I believe he is able to d ischarge from the ICU at this time. Repeat troponins 3.335, 3.030; cardiology following. Echocardiogram from 09/20/2020 showed normal left ventricular systolic function, grade 1 diastolic dysfunction, EF 50-55%. Once he is stable and breathing on room air he may discharge to follow-up with his primary bulk sealer operator, Dr. Mattson at [facility]. 03/21: Echocardiogram yesterday showed moderate global hypokinesis with EF 35- 40%. Subsequently taken to [facility] and noted to have severe [place] three- vessel coronary artery disease, patent 4 of 4 bypass grafts, and severe in-stent restenosis involving the bifurcation stents of the saphenous vein jump graft. Cardiology to consider for laser atherectomy versus drug-eluting balloon angioplasty at tertiary facility. -300 mL net fluid off with diuresis overnight. Continue medical therapy for ischemic cardiomyopathy (beta-gem, CHELO-I, aspirin, statin and Plavix). Complains of some chronic posterior left shoulder pain. Willing to try tramadol as needed. Vitals/I&O Vitals/I&O: Vital Signs Date Time Temp Pulse Resp B/P (MAP) Pulse Ox O2 Delivery O2 Flow Rate FiO2 03/21/21 04:11 98.0 61 16 160/72 (101) 91 Room Air 98.0 03/20/21 15:38 2.0 l I & O 03/20/21 03/20/21 03/21/21 15:00 23:00 07:00 Intake Total 400 ml 500 ml Output Total 650 ml 250 ml 300 ml Balance -250 ml -250 ml 200 ml Physical Exam General: Alert, Cooperative, No acute distress Heart: Regular rate Lungs: Crackles Abdomen: Soft Extremities: No clubbing, No cyanosis Skin: No rashes, No breakdown Labs Labs: Laboratory Tests Test 03/20/21 08:20 03/21/21 04:35 Glucose (Fingerstick) 82 mg/dL (70-99) White Blood Count 6.2 x10^3/uL (4.0-11.0) Red Blood Count 4.00 x10^6/uL (4.30-5.70) Hemoglobin 11.9 g/dL (13.0-17.5) Hematocrit 35.6 % (39.0-53.0) Mean Corpuscular Volume 89 fL (79-100) Mean Corpuscular Hemoglobin 30 pg (25-35) Mean Corpuscular Hemoglobin Concent 33 g/dL (31-37) Red Cell Distribution Width 14.7 % (11.5-14.5) Platelet Count 161 x10^3/uL (140-400) Neutrophils (%) (Auto) 80 % (31-73) Lymphocytes (%) (Auto) 10 % (24-48) Monocytes (%) (Auto) 9 % (0-9) Eosinophils (%) (Auto) 1 % (0-3) Basophils (%) (Auto) 1 % (0-3) Neutrophils # (Auto) 4.9 x10^3/uL (1.8-7.7) Lymphocytes # (Auto) 0.6 x10^3/uL (1.0-4.8) Monocytes # (Auto) 0.5 x10^3/uL (0.0-1.1) Eosinophils # (Auto) 0.1 x10^3/uL (0.0-0.7) Basophils # (Auto) 0.0 x10^3/uL (0.0-0.2) Sodium Level 133 mmol/L (136-145) Potassium Level 3.8 mmol/L (3.5-5.1) Chloride Level 98 mmol/L (98-107) Carbon Dioxide Level 27 mmol/L (21-32) Anion Gap 8 (6-14) Blood Urea Nitrogen 16 mg/dL (8-26) Creatinine 0.7 mg/dL (0.7-1.3) Estimated GFR (Cockcroft-Gault) 106.9 Glucose Level 91 mg/dL (70-99) Calcium Level 8.3 mg/dL (8.5-10.1) Magnesium Level 2.0 mg/dL (1.8-2.4) Comment Review of Relevant I have reviewed the following items janay (where applicable) has been applied. Medications: Current Medications Medications (Trade) Dose Ordered Sig/Nery Route PRN Reason Start Time Stop Time Status Last Admin Dose Admin Furosemide (Lasix) 20 mg DAILY PO 03/20/21 09:00 03/20/21 08:11 Perflutren Protein Type A Microsphe (Optison) 0.66 mg 1X ONCE IV 03/20/21 10:15 03/20/21 10:16 DC 03/20/21 10:15 Magnesium Sulfate 50 ml @ 25 mls/hr 1X ONCE IV 03/20/21 18:00 03/20/21 19:59 DC 03/20/21 17:35 Heparin Sodium/ Sodium Chloride (HEPARIN for ARTERIAL LINE FLUSH) 1,000 unit 1X ONCE IART 03/20/21 15:15 03/20/21 15:16 DC 03/20/21 15:15 Heparin Sodium/ Sodium Chloride (HEPARIN for ARTERIAL LINE FLUSH) 1,000 unit 1X ONCE IART 03/20/21 15:15 03/20/21 15:16 DC 03/20/21 15:15 Midazolam HCl (Versed) 2 mg 1X ONCE IV 03/20/21 15:15 03/20/21 15:16 DC 03/20/21 15:15 Iodixanol (Visipaque 320) 100 ml 1X ONCE IART 03/20/21 15:15 03/20/21 15:16 DC 03/20/21 15:15 Lidocaine HCl (Lidocaine 1% 20ml Vial) 20 ml 1X ONCE INJ 03/20/21 15:15 03/20/21 15:16 DC 03/20/21 15:15 Justifications for Admission Other Justification Hypoxic respiratory failure DAGOBERTO SHIELDS MD Mar 21, 2021 07:49
[2021-03-21] MEDS: ISOSORBIDE MONONITRATE ER 30 MG TAB.ER.24H PO SCH (08:48)
[2021-03-21] MEDS: OMEGA-3 FATTY ACIDS/FISH OIL 1,000 MG CAPSULE. PO SCH (08:48)
[2021-03-21] MEDS: DOCUSATE SODIUM 100 MG CAPSULE. PO SCH (08:48)
[2021-03-21] MEDS: METOPROLOL SUCC 24HR ER 100 MG TAB.ER.24H. PO SCH (08:48)
[2021-03-21] MEDS: ATORVASTATIN CALCIUM 40 MG TABLET. PO SCH (08:49)
[2021-03-21] MEDS: FUROSEMIDE 20 MG TABLET PO SCH (08:49)
[2021-03-21] MEDS: FAMOTIDINE 20 MG TABLET. PO SCH (08:49)
[2021-03-21] MEDS: LISINOPRIL 20 MG TABLET PO SCH (08:49)
[2021-03-21] MEDS: CLOPIDOGREL BISULFATE 75 MG TABLET PO SCH (08:50)
[2021-03-21] MEDS: MULTIVITAMIN I-VITE TABLET. PO SCH (08:50)
[2021-03-21] MEDS: ASPIRIN CHEWABLE 81 MG TABLET. PO SCH (08:50)
--- NOTE | 2021-03-21 09:06 | NUR ---
SS following up with discharge planning. SS reviewed pt chart and discussed with pt RN. Pt is currently on room air. COVID19 negative. Pt had heart cath on 03/20/2021. Probable discharge to home later today if Cardiology signs off. SS will continue to follow for discharge planning.
[2021-03-21] MEDS ORDERED: traMADol 50 MG TABLET PO PRN (10:00)
[2021-03-21 11:00] VITALS: BP 147/66
[2021-03-21] MEDS ORDERED: FURO20TA3 PO (13:45)
[2021-03-21] MEDS ORDERED: FAMO20TA5 PO (13:45)
[2021-03-21] MEDS ORDERED: POTA20TA4 PO (13:45)
[2021-03-21] MEDS ORDERED: TRAM50TA PO (13:45)
--- NOTE | 2021-03-21 13:47 | PDOC3 ---
Discharge Summary Visit Information Date of Admission: Mar 19, 2021 Date of Discharge: Mar 21, 2021 Brief Hospital Course Allergies Allergies Coded Allergies Type Severity Reaction Last Updated Verified morphine Allergy Intermediate 09/19/20 Yes Vital Signs Vital Signs Date Time Temp Pulse Resp B/P (MAP) Pulse Ox O2 Delivery O2 Flow Rate FiO2 03/21/21 11:00 68 16 147/66 (93) 94 Room Air 03/21/21 04:11 98.0 98.0 03/20/21 15:38 2.0 Lab Results Laboratory Tests Test 03/19/21 14:50 03/19/21 15:30 03/19/21 17:19 03/19/21 22:07 SARS-CoV-2 RNA (HARLEEN) Negative (Negative) SARS-CoV-2 Antigen (Rapid) Negative (NEGATIVE) Troponin I Quantitative 3.335 ng/mL (0.000-0.055) 3.030 ng/mL (0.000-0.055) Glucose (Fingerstick) 82 mg/dL (70-99) Test 03/20/21 04:45 03/20/21 08:20 03/21/21 04:35 White Blood Count 8.7 x10^3/uL (4.0-11.0) 6.2 x10^3/uL (4.0-11.0) Red Blood Count 3.73 x10^6/uL (4.30-5.70) 4.00 x10^6/uL (4.30-5.70) Hemoglobin 11.4 g/dL (13.0-17.5) 11.9 g/dL (13.0-17.5) Hematocrit 33.8 % (39.0-53.0) 35.6 % (39.0-53.0) Mean Corpuscular Volume 91 fL (79-100) 89 fL (79-100) Mean Corpuscular Hemoglobin 31 pg (25-35) 30 pg (25-35) Mean Corpuscular Hemoglobin Concent 34 g/dL (31-37) 33 g/dL (31-37) Red Cell Distribution Width 15.2 % (11.5-14.5) 14.7 % (11.5-14.5) Platelet Count 151 x10^3/uL (140-400) 161 x10^3/uL (140-400) Neutrophils (%) (Auto) 82 % (31-73) 80 % (31-73) Lymphocytes (%) (Auto) 9 % (24-48) 10 % (24-48) Monocytes (%) (Auto) 8 % (0-9) 9 % (0-9) Eosinophils (%) (Auto) 1 % (0-3) 1 % (0-3) Basophils (%) (Auto) 0 % (0-3) 1 % (0-3) Neutrophils # (Auto) 7.1 x10^3/uL (1.8-7.7) 4.9 x10^3/uL (1.8-7.7) Lymphocytes # (Auto) 0.8 x10^3/uL (1.0-4.8) 0.6 x10^3/uL (1.0-4.8) Monocytes # (Auto) 0.7 x10^3/uL (0.0-1.1) 0.5 x10^3/uL (0.0-1.1) Eosinophils # (Auto) 0.1 x10^3/uL (0.0-0.7) 0.1 x10^3/uL (0.0-0.7) Basophils # (Auto) 0.0 x10^3/uL (0.0-0.2) 0.0 x10^3/uL (0.0-0.2) Segmented Neutrophils % 89 % (35-66) Lymphocytes % 6 % (24-48) Monocytes % 5 % (0-10) Toxic Granulation Slight Toxic Vacuolation Slight Platelet Estimate Adequate (ADEQUATE) Sodium Level 136 mmol/L (136-145) 133 mmol/L (136-145) Potassium Level 4.1 mmol/L (3.5-5.1) 3.8 mmol/L (3.5-5.1) Chloride Level 101 mmol/L (98-107) 98 mmol/L (98-107) Carbon Dioxide Level 28 mmol/L (21-32) 27 mmol/L (21-32) Anion Gap 7 (6-14) 8 (6-14) Blood Urea Nitrogen 18 mg/dL (8-26) 16 mg/dL (8-26) Creatinine 0.9 mg/dL (0.7-1.3) 0.7 mg/dL (0.7-1.3) Estimated GFR (Cockcroft-Gault) 80.0 106.9 Glucose Level 89 mg/dL (70-99) 91 mg/dL (70-99) Calcium Level 8.1 mg/dL (8.5-10.1) 8.3 mg/dL (8.5-10.1) Phosphorus Level 4.2 mg/dL (2.6-4.7) Magnesium Level 1.7 mg/dL (1.8-2.4) 2.0 mg/dL (1.8-2.4) Triglycerides Level 67 mg/dL (0-150) Cholesterol Level 104 mg/dL (0-200) LDL Cholesterol, Calculated 47 mg/dL (0-100) VLDL Cholesterol, Calculated 13 mg/dL (0-40) Non-HDL Cholesterol Calculated 60 mg/dL (0-129) HDL Cholesterol 44 mg/dL (40-60) Cholesterol/HDL Ratio 2.4 Glucose (Fingerstick) 82 mg/dL (70-99) Laboratory Tests Test 03/21/21 04:35 White Blood Count 6.2 x10^3/uL (4.0-11.0) Red Blood Count 4.00 x10^6/uL (4.30-5.70) Hemoglobin 11.9 g/dL (13.0-17.5) Hematocrit 35.6 % (39.0-53.0) Mean Corpuscular Volume 89 fL (79-100) Mean Corpuscular Hemoglobin 30 pg (25-35) Mean Corpuscular Hemoglobin Concent 33 g/dL (31-37) Red Cell Distribution Width 14.7 % (11.5-14.5) Platelet Count 161 x10^3/uL (140-400) Neutrophils (%) (Auto) 80 % (31-73) Lymphocytes (%) (Auto) 10 % (24-48) Monocytes (%) (Auto) 9 % (0-9) Eosinophils (%) (Auto) 1 % (0-3) Basophils (%) (Auto) 1 % (0-3) Neutrophils # (Auto) 4.9 x10^3/uL (1.8-7.7) Lymphocytes # (Auto) 0.6 x10^3/uL (1.0-4.8) Monocytes # (Auto) 0.5 x10^3/uL (0.0-1.1) Eosinophils # (Auto) 0.1 x10^3/uL (0.0-0.7) Basophils # (Auto) 0.0 x10^3/uL (0.0-0.2) Sodium Level 133 mmol/L (136-145) Potassium Level 3.8 mmol/L (3.5-5.1) Chloride Level 98 mmol/L (98-107) Carbon Dioxide Level 27 mmol/L (21-32) Anion Gap 8 (6-14) Blood Urea Nitrogen 16 mg/dL (8-26) Creatinine 0.7 mg/dL (0.7-1.3) Estimated GFR (Cockcroft-Gault) 106.9 Glucose Level 91 mg/dL (70-99) Calcium Level 8.3 mg/dL (8.5-10.1) Magnesium Level 2.0 mg/dL (1.8-2.4) Brief Hospital Course Mr. Mccullough is a 85 old male who presented with: Acute hypoxic respiratory failure requiring BiPAP Acute on chronic diastolic CHF exacerbation NSTEMI History of CABG History of diabetes mellitus type 2 History of hypertension History of gastric ulcer History of Present Illness 85-year-old male with past medical history of stage I diastolic CHF with LVEF of 50 to 55% CABG 20 years ago, recent left heart cath in August, diabetes mellitus type 2, hypertension, dyslipidemia, gastric ulcer who comes in due to shortness of breath for the past 1 day. Patient states that he was at home and he was unable to go to sleep because when he lie down flat he would be short of breath. He endorses lower extremity swelling more than usual and shortness of breath during exertion. Recently had a heart cath in August and he was unsure of what was going on. Upon review of the records there was in-stent restenosis of a vein graft from his CABG but intervention for angioplasty was unsuccessful. Patient was continue with GDMT and recommended for follow-up with Dr. Mattson at [facility]. Patient also endorses some chest pressure on the left side of his chest that was similar to when he had his chest pain in the past before. Pain is not reproducible on palpation. Currently denies any fevers, abdominal pain, diarrhea, syncope, nausea vomiting, decrease in urine output. Patient is transferred to [facility] from [facility] on a BiPAP due to hypoxic respiratory failure. 03/20: Patient is afebrile, currently breathing on room air. He denies any chest pain or sensation of shortness of breath. -1750 mL fluid off overnight; continue diuresis with daily Lasix. He states he has been noticing some swelling in his legs for some time, but Dr. Mattson has been treating with compression stockings without complete relief. I believe he is able to discharge from the ICU at this time. Repeat troponins 3.335, 3.030; cardiology following. Echocardiogram from 09/20/2020 showed normal left ventricular systolic function, grade 1 diastolic dysfunction, EF 50-55%. Once he is stable and breathing on room air he may discharge to follow-up with his primary cleaning porter, Dr. Mattson at [facility]. 03/21: Echocardiogram yesterday showed moderate global hypokinesis with EF 35- 40%. Subsequently taken to [facility] and noted to have severe [place] three- vessel coronary artery disease, patent 4 of 4 bypass grafts, and severe in-stent restenosis involving the bifurcation stents of the saphenous vein jump graft. Cardiology to consider for laser atherectomy versus drug-eluting balloon angioplasty at tertiary facility. -300 mL net fluid off with diuresis overnight. Continue medical therapy for ischemic cardiomyopathy (beta-gem, CHELO-I, aspirin, statin and Plavix). Complains of some chronic posterior left shoulder pain. Willing to try tramadol as needed. Discharge Information Condition at Discharge: Stable Disposition/Orders: D/C to Home Scheduled Amlodipine Besylate (Amlodipine Besylate) 5 Mg Tablet, 5 MG PO DAILY for HTN for 30 Days, #30 Prescribed by: JOHNATHAN WILDER on 09/20/20 1715 Last Action: Continued on 03/19/21819 by JENISE LEYVA Aspirin (Children's Aspirin) 81 Mg Tab.chew, 1 TAB PO DAILY for blood thinner for 30 Days, #30 Ref 0 (Reported) Entered as Reported by: Neela Neves on 09/19/201109 Last Action: Continued on 03/19/21819 by JENISE LEYVA Atorvastatin Calcium (Atorvastatin Calcium) 40 Mg Tablet, 2 TAB PO DAILY for cholesterol, #30 Ref 5 (Reported) Entered as Reported by: Neela Neves on 09/19/201109 Last Action: Continued on 03/19/21819 by JENISE LEYVA Clopidogrel Bisulfate (Clopidogrel) 75 Mg Tablet, 1 TAB PO DAILY for CAD for 30 Days, #30 Ref 1 Prescribed by: JOHNATHAN WILDER on 09/20/201715 Last Action: Continued on 03/19/21819 by JENISE LEYVA Docusate Sodium (Colace) 100 Mg Capsule, 1 CAP PO BID for constipation for 30 Days, #60 Ref 0 (Reported) Entered as Reported by: Neela Neves on 09/19/201109 Last Action: Continued on 03/19/21819 by JENISE LEYVA Icosapent Ethyl (Vascepa) 1 Gm Capsule, 2 CAP PO BID for cholesterol for 30 Days, #120 Ref 0 (Reported) Entered as Reported by: JENISE LEYVA on 03/19/21817 Last Action: Converted on 03/19/21819 by JENISE LEYVA Isosorbide Mononitrate (Isosorbide Mononitrate Er) 30 Mg Tab.er.24h, 1 TAB PO DAILY for CAD for 30 Days, #30 Ref 5 Prescribed by: JOHNATHAN WILDER on 09/20/201714 Last Action: Continued on 03/19/21819 by JENISE LEYVA Lisinopril (Lisinopril) 40 Mg Tablet, 1 TAB PO DAILY for blolod pressure, #30 Ref 5 (Reported) Entered as Reported by: Neela Neves on 09/19/201109 Last Action: Continued on 03/19/21819 by JENISE LEYVA Metformin Hcl (Metformin Hcl) 500 Mg Tablet, 500 MG PO BIDWMEALS for ANTI- DIABETIC, Ref 0 (Reported) Entered as Reported by: Neela Neves on 09/19/201109 Last Action: Continued on 03/19/21819 by JENISE LEYVA Metoprolol Succinate (Toprol Xl) 100 Mg Tab.er.24h, 1 TAB PO DAILY for heart rate for 30 Days, #30 Ref 0 (Reported) Entered as Reported by: Neela Neves on 09/19/201109 Last Action: Continued on 03/19/21819 by JENISE LEYVA Vit A/Vit C/Vit E/Zinc/Copper (Preservision Areds Softgel) 1 Each Capsule, 1 CAP PO BID for supplement for 30 Days, #60 Ref 0 (Reported) Entered as Reported by: Neela Neves on 09/19/20 1110 Last Action: Converted on 03/19/21819 by JENISE LEYVA [Zantac] , 150 MG PO BID, (Reported) Entered as Reported by: Carmen Rhodes on 10/04/20 0838 Last Action: Converted on 03/19/21819 by JENISE LEYVA Justicifation of Admission Dx: Justifications for Admission: Justification of Admission Dx: Yes DAGOBERTO SHIELDS MD Mar 21, 2021 13:47
--- NOTE | 2021-03-21 22:54 | PDOC ---
CARDIOLOGY PROGRESS NOTE SUBJECTIVE: No acute events overnight. Denies any chest pain. Mild dyspnea. OBJECTIVE: Vital Signs/I&O: Vital Signs Date Time Temp Pulse Resp B/P (MAP) Pulse Ox O2 Delivery O2 Flow Rate FiO2 03/21/21 11:00 68 16 147/66 (93) 94 Room Air 03/21/21 04:11 98.0 98.0 03/20/21 15:38 2.0 I & O 03/20/21 03/20/21 03/21/21 15:00 23:00 07:00 Intake Total 400 ml 500 ml Output Total 650 ml 250 ml 300 ml Balance -250 ml -250 ml 200 ml Objective: GEN.: No apparent distress. Alert and oriented. HEENT: Head is normocephalic, atraumatic NECK: Supple. LUNGS: Clear to auscultation. HEART: RRR, S1, S2 present. Peripheral pulses intact ABDOMEN: Soft, nontender. Positive bowel sounds. EXTREMITIES: Without any cyanosis. NEUROLOGIC: Normal speech, normal tone PSYCHIATRIC: Normal affect, normal mood. SKIN: No ulcerations CURRENT MEDICATIONS: Current Medications Medications (Trade) Dose Ordered Sig/Nery Route PRN Reason Start Time Stop Time Status Last Admin Dose Admin Tramadol HCl (Ultram) 50 mg PRN Q6HRS PRN PO MODERATE-SEVERE PAIN 03/21/21 10:00 03/21/21 14:45 DC 03/21/21 10:29 DIAGNOSTIC TESTING: Labs: Laboratory Tests 03/21/21 04:35 Laboratory Tests Test 03/21/21 04:35 White Blood Count 6.2 x10^3/uL (4.0-11.0) Red Blood Count 4.00 x10^6/uL (4.30-5.70) L Hemoglobin 11.9 g/dL (13.0-17.5) L Hematocrit 35.6 % (39.0-53.0) L Mean Corpuscular Volume 89 fL (79-100) Mean Corpuscular Hemoglobin 30 pg (25-35) Mean Corpuscular Hemoglobin Concent 33 g/dL (31-37) Red Cell Distribution Width 14.7 % (11.5-14.5) H Platelet Count 161 x10^3/uL (140-400) Neutrophils (%) (Auto) 80 % (31-73) H Lymphocytes (%) (Auto) 10 % (24-48) L Monocytes (%) (Auto) 9 % (0-9) Eosinophils (%) (Auto) 1 % (0-3) Basophils (%) (Auto) 1 % (0-3) Neutrophils # (Auto) 4.9 x10^3/uL (1.8-7.7) Lymphocytes # (Auto) 0.6 x10^3/uL (1.0-4.8) L Monocytes # (Auto) 0.5 x10^3/uL (0.0-1.1) Eosinophils # (Auto) 0.1 x10^3/uL (0.0-0.7) Basophils # (Auto) 0.0 x10^3/uL (0.0-0.2) Sodium Level 133 mmol/L (136-145) L Potassium Level 3.8 mmol/L (3.5-5.1) Chloride Level 98 mmol/L (98-107) Carbon Dioxide Level 27 mmol/L (21-32) Anion Gap 8 (6-14) Blood Urea Nitrogen 16 mg/dL (8-26) Creatinine 0.7 mg/dL (0.7-1.3) Estimated GFR (Cockcroft-Gault) 106.9 Glucose Level 91 mg/dL (70-99) Calcium Level 8.3 mg/dL (8.5-10.1) L ASSESSMENT: 1. NSTEMI 2. Ischemic CMP 3. HTN PLAN: 1. Continue presents meds. 2. We had a long discussion regarding goals of care. 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 I called and spoke to his primary hand stapler as well. Home on Toprol, Imdur, amlodipine, statin, asa, plavix, lisinopril. Thanks Justicifation of Admission Dx: Justifications for Admission: Justification of Admission Dx: Yes GRACE CHOWDHURY MD Mar 21, 2021 22:54
[2021-03-22] MEDS ORDERED: POTASSIUM CHLORIDE 20 MEQ TABLET.ER. PO SCH (08:00)
== END 2021-03-21 14:00 | disposition home or self-care (01) | DRG 280 ==
LOC: 1 WEST ICU 07:51
PROVIDERS: ADMIT Internal Medicine; ATTEND Internal Medicine
PROC: 5A09357 Assistance with Respiratory Ventilation, Less than 24 Consecutive Hours, Continuous Positive Airway Pressure (ICD-10-PCS; 2021-03-19)
PROC: 4A023N7 Measurement of Cardiac Sampling and Pressure, Left Heart, Percutaneous Approach (ICD-10-PCS; principal; 2021-03-20)
PROC: B2111ZZ Fluoroscopy of Multiple Coronary Arteries using Low Osmolar Contrast (ICD-10-PCS; 2021-03-20)
PROC: B2131ZZ Fluoroscopy of Multiple Coronary Artery Bypass Grafts using Low Osmolar Contrast (ICD-10-PCS; 2021-03-20)
PROC: B2181ZZ Fluoroscopy of Left Internal Mammary Bypass Graft using Low Osmolar Contrast (ICD-10-PCS; 2021-03-20)
DX: T82.855A Stenosis of coronary artery stent, initial encounter (principal); I21.4 Non-ST elevation (NSTEMI) myocardial infarction; I50.33 Acute on chronic diastolic (congestive) heart failure; J96.01 Acute respiratory failure with hypoxia; E11.9 Type 2 diabetes mellitus without complications; E78.5 Hyperlipidemia, unspecified; I11.0 Hypertensive heart disease with heart failure; I25.10 Atherosclerotic heart disease of native coronary artery without angina pectoris; I25.5 Ischemic cardiomyopathy; K59.00 Constipation, unspecified; Z79.02 Long term (current) use of antithrombotics/antiplatelets; Z79.82 Long term (current) use of aspirin; Z79.84 Long term (current) use of oral hypoglycemic drugs; Z79.899 Other long term (current) drug therapy; Z82.3 Family history of stroke; Z87.11 Personal history of peptic ulcer disease; Z87.891 Personal history of nicotine dependence; Z95.1 Presence of aortocoronary bypass graft; Z96.651 Presence of right artificial knee joint; Z98.41 Cataract extraction status, right eye; Z98.42 Cataract extraction status, left eye; Z88.8 Allergy status to other drugs, medicaments and biological substances; Z20.822 Contact with and (suspected) exposure to COVID-19
CPT/HCPCS: 36415; 80048; 80061; 82962; 83735; 84100; 84484; 85007; 85025; 87426; 93308; 93459; 94660; 94760; 99152; 99153; C1769; C1894; J1644; J1650; J1815; J1940; J2250; J3475; J3490; Q9956; Q9967; U0003; U0005; G0378

== ENCOUNTER → 2021-05-25 | Outpatient (CLI) | payer MEDICARE, OTHER ==
[~2021-05-25] MED LIST changes: +FAMO20TA5 PO; +FURO20TA3 PO; +ICOS1CAP PO; +POTA20TA4 PO; +TRAM50TA PO
--- NOTE | 2021-05-29 11:03 | RAD ---
INDICATION: Reason: ABNORMAL CT OF THE ABDOMEN, PANCREATIC LESION / Spl. Instructions: / History: COMPARISON: CT from May 04, 2021 FINDINGS: MRI images are obtained of the abdomen including three-dimensional MRCP. Scoliotic curvature the spine with degenerative changes. Scattered lesions are seen within the spine including some that are T2 hyperintense corresponding to the lesion seen on CT. There is partial visualization of some lesions in the pelvis bilaterally as we ll. Atherosclerotic disease. Gallbladder is well distended at time of exam. No hydronephrosis. Trace bilateral pleural effusions with adjacent airspace consolidation again seen. Within the pancreas there is a T2 hyperintense mass identified measuring 38 x 27 mm with some septati ons within. Cannot assess for enhancement secondary to lack of intravenous contrast. There is either a second lesion or a second portion of the lesion extending along the right aspect measuring up to ab out 19 mm. IMPRESSION: * T2 hyperintense lesion within the pancreas with septations within. Again this could be secondary to a cystic pancreatic lesion such as intraductal papillary mucinous neoplasm or pseudocyst with othe r higher grade causes such as cystic islet cell tumor not excluded. Cannot assess for enhancement on this noncontrast examination. * T2 hyperintense lesions are seen within the osseous structures which likely corresponds to the les ions seen on recent CT. Electronically signed by: Ramon Schaffer MD (05/29/2021 11:00 AM) [id number]
== END ==
LOC: MRI 10:47
PROVIDERS: ATTEND Family Medicine
DX: G95.89 Other specified diseases of spinal cord (principal); M47.819 Spondylosis without myelopathy or radiculopathy, site unspecified; M41.80 Other forms of scoliosis, site unspecified; M89.9 Disorder of bone, unspecified; K86.9 Disease of pancreas, unspecified; R59.9 Enlarged lymph nodes, unspecified
CPT/HCPCS: 74181